=== PATIENT | female | born 1975 | race Hispanic/Latino ===

== ENCOUNTER 2020-12-24 15:21 | Emergency (ER) | payer OTHER ==
--- OUTSIDE RECORDS SUMMARY | 2020-12-24 15:24 | XMS REPORT | Continuity of Care Document ---
:1975 Author Organization [facility] [place] [facility] t Address [address] [place] [address] Care Team Providers Name Role Phone Pcp, Does Not Have A Primary Care Physician CORONA Attending Clinician Unavailable Ayse RN Attending Clinician Unavailable Only, Db Test Attending Clinician Unavailable Melly CAREER PORTALS TEACHER Attending Clinician MELLY Attending Clinician Unavailable Doctor Unassigned, Name Attending Clinician Unavailable Pob1, Care [facility] Attending Clinician Unavailable Anene CAREER PORTALS TEACHER Attending Clinician ANENE Attending Clinician Unavailable Payers Payer Name Policy Type Policy Number Effective Date Expiration Date S ource Problems Condition Condition Condition Status Onset Resolution Last Treating Co mments Source Name Details Category Date Date Treatment Clinician Date Obesity Obesity Disease Active 2015-02 Univers (BMI (BMI 2-27 ity of 30-39.9) 30-39.9) 00:00: [place] 00 Medical Branch Allergies, Adverse Reactions, Alerts Allergy Allergy Status Severity Reaction(s) Onset Inactive Treating Comm ents Source Name Type Date Date Clinician Codeine Propensi Active Rash 2015-02 Univers ty to 2-22 ity of adverse 00:00: [place] reaction 00 Medical s to Branch drug Propoxyp Propensi Active Anaphylaxis 2015-02 U nivers hene ty to 2-22 ity of N-Acetam adverse 00:00: [place] inophen reaction 00 Medical s to Branch drug Penicill Propensi Active Rash 2015-02 Univer s ins ty to 2-22 ity of adverse 00:00: [place] reaction 00 Medical s to Branch drug PROPOXYP DRUG Active High Anaphylaxis 2015-02 Uni vers HENE 04-02 ity of N-ACETAM 00:00: [place] INOPHEN 00 Medical Branch CODEINE DRUG Active Med Rash 2015-02 Univers INGREDI 2-22 ity of 00:00: [place] 00 Medical Branch PENICILL Drug Active Med Rash 2015-02 Univers INS Class 2-22 ity of 00:00: [place] 00 Medical Branch Social History Social Habit Start Date Stop Date Quantity Comments Source Exposure to Not sure [facility] SARS-CoV-2 [facility] (event) [facility] Tobacco use and 2016-02-08 2016-02-08 Never used Universit y of exposure 00:00:00 00:00:00 [facility] Alcohol intake 2016-02-08 2016-02-08 Current drinker of Un iversity of 00:00:00 00:00:00 alcohol (finding) [facility] edical [facility] Alcohol Comment 2016-01-31 2016-01-31 Occasional Drinker U niversity of 00:00:00 00:00:00 - approx. 1-2 [place] Medic al times per month Branch Sex Assigned At [birth year] Universit y of 00:00:00 00:00:00 [facility] Smoking Status Start Date Stop Date Source Never smoker [facility] Medications Ordered Filled Start Stop Current Ordering Indication Dosage Frequency Signature Comments Components Source Medication Medication Date Date Medication? Clinician (SIG) Name Name proMETHazin Yes promethazi Univers e 25 mg 8-24 ne 25 mg ity of tablet 16:22: tablet [address] thyroid 0 Yes [place] [facility] (ARMOUR 8-24 Thyroid 60 ity of THYROID) 60 16:22: mg tablet [place] mg tablet [address] [place] [address] tobramycin- 0 Yes TobraDex [facility] dexamethaso 8-24 0.3 %-0.1 ity of ne 16:22: % eye [place] (TOBRADEX) 50 ointment Medic al ophthalmic Branch ointment traMADoL 50 0 Yes tramadol [facility] mg tablet 8-24 50 mg ity of 16:22: tablet [address] proMETHazin Yes promethazi Univers e 25 mg 8-24 ne 25 mg ity of tablet 16:22: tablet [place] 50 Medical Branch thyroid 2020-0 Yes [facility] (ARMOUR 8-24 Thyroid 60 ity of THYROID) 60 16:22: mg tablet [place] mg tablet 50 Medical Branch tobramycin- 2020-0 Yes TobraDex [place] dexamethaso 8-24 0.3 %-0.1 ity of ne 16:22: % eye [place] (TOBRADEX) 50 ointment Medic al ophthalmic Branch ointment traMADoL 50 2020-0 Yes tramadol [place] mg tablet 8-24 50 mg ity of 16:22: tablet [place] 50 Medical Branch proMETHazin 2020-0 Yes promethazi Univers e 25 mg 8-24 ne 25 mg ity of tablet 16:22: tablet [place] 50 Medical Branch thyroid 2020-0 Yes [facility] (ARMOUR 824 Thyroid 60 ity of THYROID) 60 16:22: mg tablet [place] mg tablet 50 Medical Branch tobramycin- 2020-0 Yes TobraDex [place] dexamethaso 8-24 0.3 %-0.1 ity of ne 16:22: % eye [place] (TOBRADEX) 50 ointment Medic al ophthalmic Branch ointment traMADoL 50 2020-0 Yes tramadol [facility] mg tablet 8-24 50 mg ity of 16:22: tablet [place] 50 Medical Branch proMETHazin 2020-0 Yes promethazi Univers e 25 mg 8-24 ne 25 mg ity of tablet 16:22: tablet [place] 50 Medical Branch thyroid 2020-0 Yes [facility] (ARMOUR 8-24 Thyroid 60 ity of THYROID) 60 16:22: mg tablet [place] mg tablet 50 Medical Branch tobramycin- 2020-0 Yes TobraDex [place] [facility] dexamethaso 8-24 0.3 %-0.1 ity of ne 16:22: % eye [place] (TOBRADEX) 50 ointment Medic al ophthalmic Branch ointment traMADoL 50 2020-0 Yes tramadol [facility] mg tablet 8-24 50 mg ity of 16:22: tablet [place] 50 Medical Branch proMETHazin 2020-0 Yes promethazi Univers e 25 mg 8-24 ne 25 mg ity of tablet 16:22: tablet [place] 50 Medical Branch thyroid 2020-0 Yes [facility] (ARMOUR 8-24 Thyroid 60 ity of THYROID) 60 16:22: mg tablet [place] mg tablet 50 Medical Branch tobramycin- 2019-0 Yes TobraDex [place] dexamethaso 8-24 0.3 %-0.1 ity of ne 16:22: % eye [place] (TOBRADEX) 50 ointment Medic al ophthalmic Branch ointment traMADoL 50 2019-0 Yes tramadol [facility] mg tablet 8-24 50 mg ity of 16:22: tablet [place] 50 Medical Branch proMETHazin 2019-0 Yes promethazi Univers e 25 mg 8-24 ne 25 mg ity of tablet 16:22: tablet [place] 50 Medical Branch thyroid 2020-0 Yes [facility] (ARMOUR 8-24 Thyroid 60 ity of THYROID) 60 16:22: mg tablet [place] mg tablet 50 Medical Branch tobramycin- 0 Yes TobraDex [place] dexamethaso 8-24 0.3 %-0.1 ity of ne 16:22: % eye [place] (TOBRADEX) 50 ointment Medic al ophthalmic Branch ointment traMADoL 50 2019-0 Yes tramadol [facility] mg tablet 8-24 50 mg ity of 16:22: tablet [place] 50 Medical Branch ondansetron 2019-0 2020- No [id number] 4mg Take 1 Univers (ZOFRAN 8-24 08-30 tablet by ity of ODT) 4 mg 00:00: 04:59 mouth [place] disintegrat 00 :00 every 8 Medic al ing tablet (eight) Branch hours as needed for Nausea and Vomiting (N/V) for up to 5 days. ALPRAZolam 0 2020- No .5mg Take 0.5 [facility] 0.5 mg 3-16 11-12 mg by ity of tablet 00:00: 05:59 mouth. [place] 00 :00 Medical Branch fluticasone 2019-0 Yes 1{spray Use 1 [facility] propionate 3-02 } [place] in ity o f 50 00:00: each [place] mcg/actuati 00 nostril. Medi darlene on nasal Branch spray fluticasone 2019-0 Yes 1{spray Use 1 [place] propionate 3-02 } [place] in ity o f 50 00:00: each [place] mcg/actuati 00 nostril. Medi darlene on nasal Branch spray fluticasone 2020-0 Yes 1{spray Use 1 [place] [facility] propionate 3-02 } [place] in ity o f 50 00:00: each [place] mcg/actuati 00 nostril. Medi darlene on nasal Branch spray fluticasone 2020-0 Yes 1{spray Use 1 [facility] propionate 3-02 } [place] in ity o f 50 00:00: each [place] mcg/actuati 00 nostril. Medi darlene on nasal Branch spray fluticasone 2020-0 Yes 1{spray Use 1 [place] [facility] propionate 3-02 } [place] in ity o f 50 00:00: each [place] mcg/actuati 00 nostril. Medi darlene on nasal Branch spray fluticasone 2020-0 Yes 1{spray Use 1 [facility] propionate 3-02 } [place] in ity o f 50 00:00: each [place] mcg/actuati 00 nostril. Medi darlene on nasal Branch spray levothyroxi 2015-02 Yes 50ug Take 50 Uni vers ne 50 mcg 2-27 mcg by ity of tablet 15:27: mouth [place] 12 every Medical morning. Branch metFORMIN 2015-02 Yes 500mg Take 500 Uni vers 500 mg 2-27 mg by ity of tablet 15:27: mouth 2 [place] 12 (two) Medical times Branch daily with meals. levothyroxi 2015-02 Yes 50ug Take 50 Uni vers ne 50 mcg 2-27 mcg by ity of tablet 15:27: mouth [place] 12 every Medical morning. Branch metFORMIN 2015-02 Yes 500mg Take 500 Uni vers 500 mg 2-27 mg by ity of tablet 15:27: mouth 2 [place] 12 (two) Medical times Branch daily with meals. levothyroxi 2015-02 Yes 50ug Take 50 Uni vers ne 50 mcg 2-27 mcg by ity of tablet 15:27: mouth [place] 12 every Medical morning. Branch metFORMIN 2015-02 Yes 500mg Take 500 Uni vers 500 mg 2-27 mg by ity of tablet 15:27: mouth 2 [place] 12 (two) Medical times Branch daily with meals. levothyroxi 2015-02 Yes 50ug Take 50 Uni vers ne 50 mcg 2-27 mcg by ity of tablet 15:27: mouth [place] 12 every Medical morning. Branch metFORMIN 2015-02 Yes 500mg Take 500 Uni vers 500 mg 2-27 mg by ity of tablet 15:27: mouth 2 [place] 12 (two) Medical times Branch daily with meals. levothyroxi 2015-02 Yes 50ug Take 50 Uni vers ne 50 mcg 2-27 mcg by ity of tablet 15:27: mouth [place] 12 every Medical morning. Branch metFORMIN 2015-02 Yes 500mg Take 500 Uni vers 500 mg 2-27 mg by ity of tablet 15:27: mouth 2 [place] 12 (two) Medical times [facility] daily with meals. levothyroxi 2015-02 Yes 50ug Take 50 Uni vers ne 50 mcg 2-27 mcg by ity of tablet 15:27: mouth [place] 12 every Medical morning. Branch metFORMIN 2015-02 Yes 500mg Take 500 Uni vers 500 mg 2-27 mg by ity of tablet 15:27: mouth 2 [place] 12 (two) Medical times [facility] daily with meals. levothyroxi 2015-02 Yes 50ug Take 50 Uni vers ne 50 mcg 2-27 mcg by ity of tablet 15:27: mouth [place] 12 every Medical morning. Branch metFORMIN 2015-02 Yes 500mg Take 500 Uni vers 500 mg 2-27 mg by ity of tablet 15:27: mouth 2 [place] 12 (two) Medical times [facility] daily with meals. levothyroxi 2015-02 Yes 50ug Take 50 Uni vers ne 50 mcg 2-27 mcg by ity of tablet 15:27: mouth [place] 12 every Medical morning. Branch metFORMIN 2015-02 Yes 500mg Take 500 Uni vers 500 mg 2-27 mg by ity of tablet 15:27: mouth 2 [place] 12 (two) Medical times [facility] daily with meals. Vital Signs Vital Name Observation Time Observation Value Comments Source Systolic blood 2019-10-03 16:08:00 128 mm[Hg] [facility] Diastolic blood 2019-10-03 16:08:00 87 mm[Hg] [facility] Heart rate 2019-10-03 16:08:00 92 /min [facility] Body temperature 2019-10-03 16:08:00 37 Mag[facility] Respiratory rate 2019-10-03 16:08:00 18 /min [facility] Body height 2019-10-03 16:08:00 152.4 cm [facility] Body weight 2019-10-03 16:08:00 73.483 kg [facility] BMI 2019-10-03 16:08:00 31.64 kg/m2 Universi ty of [facility] Oxygen saturation in 2019-10-03 16:08:00 97 /min University Arterial blood by [facility] Pulse oximetry [facility] Procedures Procedure Date / Time Performed Performing Clinician [facility] e ASSIGNMENT OF BENEFITS 2020-10-03 21:08:21 Doctor Unassigned, No [facility] Name Medical Branch Encounters Start End Encounter Admission Attending Care Care Encounter Source Date/Time Date/Time Type Type Clinicians Facility Department ID 2020-10-07 2020-10-07 Outpatient [facility] [id number] Univers 10:00:00 10:00:00 [id number] ity of [facility] 2020-10-07 2020-10-07 [facility] [id number] [place] 00:00:00 00:00:00 LISA [address] 2020-10-06 2020-10-07 Outpatient [facility] [id number] [place] 00:00:00 00:00:[address] 2020-10-05 2020-10-05 Letter Vita Tavera [id number] Univers 00:00:00 00:00:00 (Out) [place] [id number] it y of [facility] [id number] Rolan as [id number] [address] 2020-10-03 2020-10-03 Laboratory Only, Ang Db Test [facility] 1.2.8 40.114 [id number] Univers 16:10:28 16:25:28 Only Rupa Pickard [facility] [id number] [facility] [id number] Rolan as Ryan?Blea [phone] In aureliano bailey [address] [facility] 2020-10-03 2020-10-03 Outpatient [facility] [id number] Univers 16:00:00 16:00:[id number] [facility] 2020-10-03 2020-10-03 Outpatient Hasmukh PICKARD [facility] [id number] Univers 16:00:00 16:00:00 RUPA boggs [facility] 2020-10-03 2020-10-03 Orders Doctor RAMU [id number] Univers 00:00:00 00:00:00 Only Unassigned, DEEDEE [id number] ity of [facility] [id number] Rolan as [phone] [facility] 009 Branch 2019-10-03 2019-10-03 Urgent Pob1, Acute Care Clinic [facility] 1. [id number] Univers 11:04:32 11:49:00 Kylie Valdez [id number] ity of [place] [id number] Rolan as Professio [phone] [facility] [address] [facility] Office [address] One 2019-10-03 2019-10-03 Outpatient R ZOILA [facility] [id number] Univers 11:00:00 11:00:00 KYLIE ity of [facility] 2019-10-03 2019-10-03 Letter Doctor RAMU Cordero.[id number] Univers 00:00:00 00:00:00 (Out) Unassigned, DEEDEE [id number] ity of [facility] [id number] Rolan as [phone] [facility] 044 [facility] 2019-10-03 2019-10-03 Letter Doctor RAMU [id number] Univers 00:00:00 00:00:00 (Out) Unassigned, DEEDEE [id number] ity of [facility] [id number] Rolan as [phone] [address] Results This patient has no known results.
[2020-12-24] MEDS ORDERED: ONDANSETRON 4 MG/2 ML VIAL ONE (16:20)
[2020-12-24] MEDS ORDERED: MORPHINE 4 MG/ML SYR ONE ×2 (16:20→19:52)
[2020-12-24 16:27] LABS: Urine Blood 1+ (Negative); Urine Glucose Negative (Negative); Urine Protein Negative (Negative); Urine Specific Gravity 1.025 (1.005-1.030); Urine pH 5.5 (5.0-7.0)
[2020-12-24 16:42] LABS: Absolute Lymphocytes (CBC) 4.1 K/uL (0.7-4.9); Basophils % 1.1 % (0-1.3); Lymphocytes % 37.1 % (15.3-44.8); MPV 8.9 fL (7.6-11.3); RBC Red Blood Cell Count 4.09 M/uL (3.86-4.86)
[2020-12-24 16:44] LABS: Urine Specific Gravity/Preg 1.025 (1.005-1.030)
[2020-12-24 17:04] LABS: Albumin 3.7 g/dL (3.4-5.0); Bilirubin Direct 0.1 mg/dL (0-0.2); Bilirubin Total 0.4 mg/dL (0.2-1.0); Potassium 3.7 mmol/L (3.5-5.1); Protein, Total 8.5 g/dL (6.4-8.2)
--- NOTE | 2020-12-24 18:25 | RAD REPORT ---
EXAM DESCRIPTION: US - Pelvis Complete - 12/24/2020 4:52 pm CLINICAL HISTORY: pelvic pain COMPARISON: TRANSVAGINAL STUDY PROBE dated 02/11/2014 TECHNIQUE: Transabdominal pelvic sonography was performed. FINDINGS: Left ovary is identified, normal in size and shows normal blood flow within the stroma. No new solid or cystic ovarian or left adnexal finding identifiable. Approximately 16 millimeter round hypoechoic mass adjacent to the left ovary has not changed since 2015. Right ovary is not identified and may be surgically absent or obscured by bowel. No right adnexal mas s identified. Uterus is not identified. Patient states partial hysterectomy surgical history. IMPRESSION: Left ovary with small adjacent hypoechoic mass unchanged from 2015. Uterus is not identified and absent by history. Right ovary is not visualized and may be absent as we ll or obscured by bowel.
--- NOTE | 2020-12-24 19:18 | RAD REPORT ---
EXAM DESCRIPTION: CT - Abdomen Pelvis W Contrast - 12/24/2020 7:05 pm CLINICAL HISTORY: lower abdominal pain COMPARISON: CT-STONE PROTOCOL dated 09/24/2011; TRANSVAGINAL STUDY PROBE dated 02/11/2014; Pelvis Compl ete dated 12/24/2020 TECHNIQUE: Biphasic, helical CT imaging of the abdomen and pelvis was performed following 100 ml non -ionic IV contrast. No oral contrast administered. All CT scans are performed using dose optimization technique as appropriate and may include automated exposure control or mA/KV adjustment according to patient size. FINDINGS: No suspicious findings in the lung bases. The liver, spleen, and pancreas show no focal findings. Fatty infiltration of the liver is present. N o portal vein abnormality. Gallbladder is absent. No abnormal biliary tree dilatation. Symmetric renal function is seen with no hydronephrosis or suspicious renal mass. No pyelonephritis o r acute parenchymal process. No bladder abnormalities. No adrenal abnormalities. Uterus is surgically absent. Right ovary contains several small remnant cysts or follicles not clearl y different from the 2012 study. Proximity to the proximal rectum likely the reason for nonvisualizat ion at sonography. Adjacent to the left ovary is a 16 millimeter slightly hyperdense mass. Comparing this study to multiple prior studies back to 2012 this small mass has slowly enlarged from 13 mm to 1 6 mm over a 9 year interval. Benign ovarian/ paraovarian mass is highly favored. It would be very unu sual for an ovarian malignant process to show such little change of address clerk a nearly decade long interval. No dilated bowel loops or bowel wall thickening. Cecum is filled with stool and is positioned low-lyi ng on the pelvis. The appendix is normal. No free air, free fluid or inflammatory stranding. No nurys ia, mass or bulky lymphadenopathy. No suspicious bony findings. IMPRESSION: Contrast enhanced CT abdomen and pelvis showing no acute or emergent finding. Nonacute findings are detailed in the body of the report.
--- NOTE | 2020-12-24 19:46 | EDPHYS ---
Physician Documentation [facility] Name: Dione Dalton Age: 45 yrs Sex: Female : 1975 Arrival Date: 12/24/2020 Time: 15:24 Bed 7 Private MD: Tatianna Smith ED Physician Mike Garcia HPI: 12/24 15:54 This 45 yrs old Female presents to ER via Ambulatory with complaints of m Nausea, Dizziness, Pelvic Pain - ovarian cyst. 15:54 The patient presents to the emergency department with nausea, abdominal pain, of the jmm suprapubic area. Onset: The symptoms/episode began/occurred gradually, 1 week(s) ago. Possible causes: unknown. The symptoms are aggravated by nothing. The symptoms are alleviated by nothing. Associated signs and symptoms: Pertinent negatives: abdominal pain, dysuria, fever. Is a 45-year-old female with a history of diabetes mellitus the presents emerged part with complaints of lower abdominal pain and pelvic pain beginning approximately a week ago. Patient states symptoms are similar to previous episodes of ruptured ovarian cyst. Patient is not currently taking control. Denies fever, vomiting but states having some nausea.. 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 - Social history:: Smoking status: Patient denies any tobacco usage or history of. ROS: 15:54 Constitutional: Negative for fever, chills, and weight loss, Cardiovascular: Negative jmm for chest pain, palpitations, and edema, Respiratory: Negative for shortness of breath, cough, wheezing, and pleuritic chest pain. 15:54 Abdomen/GI: Positive for nausea. 15:54 All other systems are negative. Exam: 15:54 Constitutional: This is a well developed, well nourished patient who is awake, alert, jmm and in no acute distress. Head/Face: atraumatic. Eyes: EOMI, no conjunctival erythema appreciated ENT: Moist Mucus Membranes Neck: Trachea midline, Supple Chest/axilla: Normal chest wall appearance and motion. Cardiovascular: Regular rate and rhythm. No edema appreciated Respiratory: Normal respirations, no respiratory distress appreciated 15:54 Back: Normal ROM Skin: General appearance color normal MS/ Extremity: Moves all extremities, no obvious deformities appreciated, no edema noted to the lower extremities Neuro: Awake and alert, normal gait Psych: Behavior is normal, Mood is normal, Patient is cooperative and pleasant 15:54 Abdomen/GI: Inspection: abdomen appears normal, Bowel sounds: normal, Palpation: soft, mild abdominal tenderness, in the suprapubic area. Vital Signs: 15:35 BP 124 / 79; Pulse 89; Resp 18; Temp 98.5; Pulse Ox 100% ; Weight 72.12 kg; Height 4 tw2 ft. 11 in. (149.86 cm); Pain 7/10; 17:05 BP 112 / 71; Pulse 63; Resp 18 S; Pulse Ox 99% on R/A; as6 19:59 BP 114 / 77; Pulse 60; Resp 14; Pulse Ox 99% on R/A; Pain 4/10; tw5 19:59 Pain 4/10; tw5 20:03 Pain 2/10; tw5 15:35 Body Mass Index 32.11 (72.12 kg, 149.86 cm) tw2 MDM: 15:54 Patient medically screened. joseph 19:44 Data reviewed: vital signs, nurses notes. Counseling: I had a detailed discussion with joseph the patient and/or guardian regarding: the historical points, exam findings, and any diagnostic results supporting the discharge/admit diagnosis, lab results, radiology results, the need for outpatient follow up, to return to the emergency department if symptoms worsen or persist or if there are any questions or concerns that arise at home. ED course: Patient is alert nontoxic in appearance in the ED. Patient states feeling much better. Will follow with [employer] OFFICER for further evaluation. Patient otherwise given strict return precautions. Patient understood and agrees to plan of care.. 12/24 15:55 Order name: Basic Metabolic Panel; Complete Time: 17:12 [facility] 12/24 15:55 Order name: CBC with Diff; Complete Time: 17:12 [facility] 12/24 15:55 Order name: Hepatic Function; Complete Time: 17:12 [facility] 12/24 15:55 Order name: Lipase; Complete Time: 17:12 [facility] 12/24 16:27 Order name: Urine Dipstick-Ancillary; Complete Time: 16:30 [facility] 12/24 15:55 Order name: IV Saline Lock; Complete Time: 16:34 [facility] 12/24 15:55 Order name: Labs collected and sent; Complete Time: 16:34 [facility] 12/24 15:55 Order name: US Pelvis Complete; Complete Time: 18:35 [facility] 12/24 16:39 Order name: Urine --Ancillary; Complete Time: 17:12 [facility] 12/24 17:57 Order name: CT Abd/Pelvis - IV Contrast Only; Complete Time: 19:22 [facility] 12/24 15:55 Order name: Urine Dipstick-Ancillary (obtain specimen); Complete Time: 16:34 [facility] 12/24 15:55 Order name: Urine Test (obtain specimen); Complete Time: 16:34 [facility] Administered Medications: 16:34 Drug: morphine 4 mg Route: IVP; Site: right antecubital; as6 19:59 Follow up: Pain 4/10 Adult; Response: No adverse reaction; Pain is decreased; RASS: tw5 Alert and Calm (0) 16:34 Drug: Zofran (Ondansetron) 4 mg Route: IVP; Site: right antecubital; as6 19:59 Follow up: Response: No adverse reaction tw5 19:58 Drug: morphine 4 mg Route: IVP; Site: right antecubital; tw5 20:03 Follow up: Pain 2/10 Adult; Response: No adverse reaction; Pain is decreased; RASS: tw5 Alert and Calm (0) Disposition: 12/25 07:01 Co-signature as Attending Physician, Mike Garcia MD I agree with the assessment and rn plan of care. Attestation: The patient's history, exam findings, diagnostics, and a summary of any interventions or procedures was reviewed in detail with Jp JOY. Disposition Summary: 12/24/20 19:45 Discharge Ordered Location: Home [facility] Condition: Stable [facility] Diagnosis - Pelvic and perineal pain [facility] Followup: jmm - With: Private Physician - When: 2 - 3 days - Reason: Recheck today's complaints, Continuance of care, Re-evaluation by your physician Discharge Instructions: - Discharge Summary Sheet [facility] - Pelvic Pain, Female [facility] Forms: - Medication Reconciliation Form [facility] - Thank You Letter [facility] - Antibiotic Education [facility] - Prescription Opioid Use [facility] Prescriptions: - orphenadrine citrate 100 mg Oral Tablet Sustained Release - take 1 tablet by ORAL route 2 times per day As needed; 20 tablet; Refills: 0, m Product Selection Permitted Signatures: Dispatcher [employer] Jp Rivera PA PA jmm Nieto, Roman, MD MD rn Wise, Tara, RN RN tw2 April Mcdonnell tw5 Fabian Telles RN RN as6
--- NOTE | 2020-12-24 19:46 | ER ---
Nurse's Notes [facility] Name: Dione Dalton Age: 45 yrs Sex: Female : 1975 Arrival Date: 12/24/2020 Time: 15:24 Bed 7 Private MD: Tatianna Smith Diagnosis: Pelvic and perineal pain Presentation: 12/24 15:32 Chief complaint: Patient states: past history of ovarian cyst. pt states that she tw2 believes that she has another cyst. pain and pressure in the perineal area stared yesterday . dizziness and nausea started this morning. Coronavirus screen: Vaccine status: Patient reports being unvaccinated. Ebola Screen: Patient negative for fever greater than or equal to 101.5 degrees Fahrenheit, and additional compatible Ebola Virus Disease symptoms Patient denies exposure to infectious person. Patient denies travel to an Ebola-affected area in the 21 days before illness onset. Initial Sepsis Screen: Does the patient meet any 2 criteria? No. Patient's initial sepsis screen is negative. Risk Assessment: Do you want to hurt yourself or someone else? Patient reports no desire to harm self or others. Onset of symptoms was December 23, 2020. 15:32 Method Of Arrival: Ambulatory tw2 15:39 Acuity: OJ 3 tw2 20:04 Initial Sepsis Screen: Does the patient have a suspected source of infection? No. tw5 Patient's initial sepsis screen is negative. Triage Assessment: 15:35 General: Appears uncomfortable, Behavior is calm, cooperative, appropriate for age. tw2 Pain: Complains of pain in pelvis. GI: Reports lower abdominal pain. 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 - Social history:: Smoking status: Patient denies any tobacco usage or history of. Screenin:39 Abuse screen: Denies threats or abuse. Denies injuries from another. Nutritional tw2 screening: No deficits noted. Tuberculosis screening: No symptoms or risk factors identified. Fall Risk None identified. Assessment: 16:30 General: Appears in no apparent distress. comfortable, Behavior is calm, cooperative. as6 Pain: Complains of pain in lower abdomen. Neuro: Level of Consciousness is awake, alert, obeys commands, Oriented to person, place, time, situation. Cardiovascular: Capillary refill < 3 seconds Patient's skin is warm and dry. Respiratory: Airway is patent Respiratory effort is even, unlabored, Respiratory pattern is regular, symmetrical. GI: Reports lower abdominal pain, nausea, "I feel lots of pressure down there". Derm: Skin is intact, is healthy with good turgor. 18:00 Reassessment: Patient is alert, oriented x 3, equal unlabored respirations, skin as6 warm/dry/pink. family at bedside with pt, no distress noted. 20:03 Pain: Pain currently is 2 out of 10 on a pain scale. GI: Abdomen is non-distended. tw5 Vital Signs: 15:35 BP 124 / 79; Pulse 89; Resp 18; Temp 98.5; Pulse Ox 100% ; Weight 72.12 kg; Height 4 tw2 ft. 11 in. (149.86 cm); Pain 7/10; 17:05 BP 112 / 71; Pulse 63; Resp 18 S; Pulse Ox 99% on R/A; as6 19:59 BP 114 / 77; Pulse 60; Resp 14; Pulse Ox 99% on R/A; Pain 4/10; tw5 19:59 Pain 4/10; tw5 20:03 Pain 2/10; tw5 15:35 Body Mass Index 32.11 (72.12 kg, 149.86 cm) tw2 ED Course: 15:24 Patient arrived in ED. as 15:24 Tatianna Smith is Private Physician. as 15:38 Arm band placed on right wrist. tw2 15:39 Jp Ureña PA is PHCP. jmm 15:39 Mike Garcia MD is Attending Physician. [facility] 15:39 Triage completed. tw2 15:39 Patient has correct armband on for positive identification. Bed in low position. Call tw2 light in reach. Side rails up X 1. 15:41 Renae Raines RN is Primary Nurse. jl7 16:17 Primary Nurse role handed off by Renae Raines RN as6 16:17 Slawson, Fabian, RN is Primary Nurse. as6 16:52 US Pelvis Complete In Process Unspecified. EDMS 19:05 CT Abd/Pelvis - IV Contrast Only In Process Unspecified. EDMS 20:03 No provider procedures requiring assistance completed. IV discontinued, intact, tw5 bleeding controlled, No redness/swelling at site. Pressure dressing applied. Administered Medications: 16:34 Drug: morphine 4 mg Route: IVP; Site: right antecubital; as6 19:59 Follow up: Pain 4/10 Adult; Response: No adverse reaction; Pain is decreased; RASS: tw5 Alert and Calm (0) 16:34 Drug: Zofran (Ondansetron) 4 mg Route: IVP; Site: right antecubital; as6 19:59 Follow up: Response: No adverse reaction tw5 19:58 Drug: morphine 4 mg Route: IVP; Site: right antecubital; tw5 20:03 Follow up: Pain 2/10 Adult; Response: No adverse reaction; Pain is decreased; RASS: tw5 Alert and Calm (0) Outcome: 19:45 Discharge ordered by . jmm 20:04 Discharged to home ambulatory. tw5 20:04 Condition: stable 20:04 Discharge instructions given to patient, Instructed on discharge instructions, follow up and referral plans. no drinking with medication, no driving heavy equipment, medication usage, Demonstrated understanding of instructions, medications, Prescriptions given X 1. 20:04 Patient left the ED. tw5 Signatures: Dispatcher [employer] EDMS Jp Ureña PA PA jmm Martinez, Amelia as Wise, Tara RN RN tw2 Renae Raines RN RN jl7 April Mcdonnell tw5 Fabian Telles, RN RN as6
[2020-12-24 20:52] VITALS: TEMP 98.5
[2020-12-24 20:53] VITALS: O2SAT 99
[2020-12-24 20:54] VITALS: BP 114/77
== END 2020-12-24 20:04 | disposition home or self-care (01) ==
LOC: ER 15:21
DX: R10.2 Pelvic and perineal pain (principal); E11.9 Type 2 diabetes mellitus without complications; Z88.0 Allergy status to penicillin; Z88.5 Allergy status to narcotic agent
CPT/HCPCS: 85025; 80048; 36415; 81025; 80076; 81003; 83690; 74177; 76856; 96375; 96374; 99283; Q9967; J2405